=== PATIENT | male | born 1930 | race Caucasian/White ===

== ENCOUNTER 2019-03-28 13:16 | Inpatient (IN) | payer OTHER ==
[~2019-03-28] VITALS: Ht 167.6 cm; Wt 57.2 kg
[2019-03-28] MEDS ORDERED: SODIUM CHLORIDE 0.9% 1,000 ML IV ONE ×2 (16:09)
[2019-03-28] MEDS ORDERED: AZITHROMYCIN 500MG/ 250ML 250 ML IV ONE (16:15)
[2019-03-28] MEDS ORDERED: cefTRIAXone 1GM/50ML D5W 50 ML IV ONE (16:15)
[2019-03-28 16:52] LABS: Basophils # (auto) 0.1 uL; Eosinophils # (auto) 0.1 uL; Hematocrit 34.7 % (41.0-53.0); Lymphocytes # (auto) 0.6 uL; Mean Corpuscular Hemoglobin 24.5 pg (28.0-32.0); Neutrophils # (auto) 4.8 uL; White Blood Cell 6.2 10^3/uL (4.4-10.8)
[2019-03-28 16:54] LABS: Eosinophils % (auto) 1.5 % (0.0-7.0); Mean Corpuscular Hgb Conc. 31.6 g/dL (32.0-36.0); Mean Corpuscular Volume 77.5 fL (80.0-100.0); Monocytes # (auto) 0.5 uL; Monocytes % (auto) 8.9 % (0.0-12.0); Neutrophils % (auto) 78.6 % (37.0-80.0); Platelet Count (auto) 410 10^3/uL (140-450); Red Blood Cells 4.48 10^6/uL (4.5-5.90); Red Cell Distribution Width 19.2 % (11.8-14.3)
[2019-03-28 17:00] LABS: INR 1.06 (0.9-1.15); Partial Thromboplastin Time 31.9 sec (23.64-32.05)
[2019-03-28 17:01] LABS: Albumin 2.8 g/dL (3.4-5.0); BUN/Creatinine Ratio 7.8; Calcium 8.6 mg/dL (8.5-10.1)
[2019-03-28 17:04] LABS: Lactic Acid w/Reflex 3.7 mmol/L (0.4-2.0)
[2019-03-28 17:06] LABS: Bilirubin, Total 0.4 mg/dL (0.2-1.0); Potassium 3.1 mmol/L (3.5-5.1); Total Protein 7.7 g/dL (6.4-8.2)
[2019-03-28] MEDS ORDERED: NITROGLYCERIN 0.4 MG SL TAB SL PRN (18:15)
[2019-03-28] MEDS ORDERED: VANCOMYCIN PER PHARMACY 0 MG IV SCH (18:15)
[2019-03-28] MEDS ORDERED: ACETYLCYSTEINE 10 %(100MG/ML) SOL 4ML NEB ONE (18:15)
[2019-03-28] MEDS ORDERED: MORPHINE SULF INJ 2 MG/ML SYRINGE 1ML IV PRN ×2 (18:15)
[2019-03-28] MEDS ORDERED: HYDROcodone-ACET 5/325MG TAB PO PRN (18:15)
[2019-03-28] MEDS ORDERED: ACETAMINOPHEN 500 MG TAB PO PRN (18:15)
[2019-03-28] MEDS ORDERED: hydrALAZINE HCL 20 MG/ML VL IV PRN (18:15)
[2019-03-28] MEDS: SOD CHL 0.9%/ KCL 20MEQ 1,000 ML IV SCH (20:25)
[2019-03-28] MEDS ORDERED: VANCOMYCIN 1GM/250ML 250 ML IV ONE (20:30)
[2019-03-28] MEDS: ALBUTEROL SULF 2.5 MG/0.5ML(0.5%) NEB SOLN NEB SCH (21:13)
[2019-03-28] MEDS: IPRATROPIUM BROM 0.5 MG/2.5ML INH SOL NEB SCH (21:13)
--- NOTE | 2019-03-28 21:40 | NUR ---
Telemetry admit from [facility] admitted to Telemetry unit. Patient oriented to John Neumann, primary RN, unit, room, bed, and unit policies regarding patient care and visiting hours. Patient now on continuous telemetry monitoring, tele box #58 and telemetry reading on arrival to unit is SA 82. Patient weighed by bedscale and encouraged to call if they need something. All questions and concerns addressed, patient verbalized understanding.
[2019-03-28 22:00] VITALS: BP 130/50
[2019-03-28] MEDS ORDERED: VANCOMYCIN 750mg/250ml 250 ML IV ONE (22:00)
--- NOTE | 2019-03-28 22:15 | NUR ---
Attempted to call Maddy () at [phone] for additional information about the patient including medication dosages but she did not answer. A voicemail was left with hospital call back number.
[2019-03-28] MEDS: ATORVASTATIN 20 MG TAB PO SCH (22:57)
[2019-03-28 23:56] VITALS: BP 101/47
[2019-03-29] MEDS: PIPERACILLIN-TAZOB 3.375GM 100 ML IV SCH ×2 (00:31→06:22)
[2019-03-29] MEDS: TEMAZEPAM 15 MG CAP PO PRN ×2 (01:52→21:04)
[2019-03-29] MEDS ORDERED: GABA300C10 PO (03:23)
--- NOTE | 2019-03-29 04:05 | NUR ---
Maddy () returned call. She confirmed the patient's home medications. Will update the med rec.
[2019-03-29] MEDS ORDERED: MIRT1TAB14 PO (04:12)
[2019-03-29] MEDS ORDERED: LEV50T PO (04:12)
[2019-03-29] MEDS ORDERED: TRAZ100T2 PO (04:12)
[2019-03-29] MEDS ORDERED: OMEP20TA PO (04:12)
[2019-03-29] MEDS ORDERED: DOCU100T15 PO (04:12)
[2019-03-29] MEDS ORDERED: TAMS1CAP25 PO (04:12)
[2019-03-29] MEDS ORDERED: ONDA-143 PO (04:12)
[2019-03-29 05:00] VITALS: BP 142/76
[2019-03-29 05:49] LABS: Basophils # (auto) 0.1 uL; Eosinophils # (auto) 0.4 uL; Monocytes # (auto) 0.5 uL; Neutrophils # (auto) 2.9 uL; White Blood Cell 4.6 10^3/uL (4.4-10.8)
[2019-03-29 05:52] LABS: Basophils % (auto) 2.1 % (0.0-2.0); Eosinophils % (auto) 8.2 % (0.0-7.0); Hematocrit 31.8 % (41.0-53.0); Hemoglobin 10.2 g/dL (13.5-17.5); Lymphocytes # (auto) 0.7 uL; Lymphocytes % (auto) 15.8 % (10.0-50.0); Mean Corpuscular Hgb Conc. 32.3 g/dL (32.0-36.0); Mean Corpuscular Volume 77.4 fL (80.0-100.0); Monocytes % (auto) 10.3 % (0.0-12.0); Neutrophils % (auto) 63.6 % (37.0-80.0); Nucleated Red Blood Cells % 0.1 %; Platelet Count (auto) 340 10^3/uL (140-450); Red Cell Distribution Width 19.7 % (11.8-14.3)
[2019-03-29 06:06] LABS: INR 1.1 (0.9-1.15); Partial Thromboplastin Time 32.8 sec (23.64-32.05)
[2019-03-29 06:12] LABS: Potassium 3.1 mmol/L (3.5-5.1)
[2019-03-29] MEDS: IPRATROPIUM BROM 0.5 MG/2.5ML INH SOL NEB SCH ×5 (06:23→22:46)
[2019-03-29] MEDS: ALBUTEROL SULF 2.5 MG/0.5ML(0.5%) NEB SOLN NEB SCH ×5 (06:23→22:46)
--- NOTE | 2019-03-29 07:30 | NUR ---
Opening Shift Note RECEIVED REPORT FROM NOC RN. Assumed care of patient, awake and alert. No S/S of distress/SOB or pain. BED IN LOWEST, LOCKED POSITION WITH SIDERAILS UP x2 AND CALL LIGHT WITHIN REACH. Instructed on POC and to call for assist PRN, will continue to monitor for changes Q1hr and PRN.
[2019-03-29 08:10] VITALS: BP 149/78
[2019-03-29] MEDS: SOD CHL 0.9%/ KCL 20MEQ 1,000 ML IV SCH ×2 (08:46→21:10)
[2019-03-29] MEDS ORDERED: EZ PAQUE SUSP 12OZ BTL ONE (08:57)
[2019-03-29] MEDS ORDERED: BARIUM SULFATE 98% 340 GM PWDR ONE (08:57)
[2019-03-29] MEDS ORDERED: EZ-GAS II GRANULES (RADIOLOGY USE) PO ONE (08:58)
[2019-03-29 09:00] VITALS: BP 149/78
[2019-03-29] MEDS ORDERED: GASTROGRAFIN 120 ML SOL ONE (10:16)
[2019-03-29] MEDS: FAMOTIDINE 20 MG TAB PO SCH (10:18)
[2019-03-29] MEDS: ASPirin-EC 81 mg tab PO SCH (10:18)
[2019-03-29] MEDS: LISINOPRIL 10 MG TAB PO SCH (10:19)
[2019-03-29] MEDS ORDERED: LEVOFLOXACIN 250MG 50 ML IV ONE (11:30)
[2019-03-29] MEDS ORDERED: POTASSIUM CHL 20 Meq TABLET PO ONE (11:30)
[2019-03-29] MEDS ORDERED: POTASSIUM CHL 20MEQ/100ML 100 ML IV ONE (11:30)
--- NOTE | 2019-03-29 11:34 | NUR ---
DR. Trent EDWARDS AT BEDSIDE.
--- NOTE | 2019-03-29 13:19 | NUR ---
DR. BREWSTER AT BEDSIDE.
[2019-03-29] MEDS ORDERED: VANCOMYCIN 750mg/250ml 250 ML IV SCH (14:00)
--- NOTE | 2019-03-29 16:00 | NUR ---
Respiratory note: CLEANED TRACH, PATIENT HAS A SPARE AT HOME. LEFT SAME TRACH TIES PER PATIENT REQUEST. NO DRAINING OR REDNESS NOTED.
[2019-03-29 17:00] VITALS: BP 131/84
--- NOTE | 2019-03-29 19:00 | NUR ---
OPENING NOTE Received report from day shift RN. Patient is A&O X's 4 with no s/s of distress. Patient reports no SOB or pain. Patient's family is at bedside and was also updated on POC and all questions were answered at this time. Educated patient on POC and to use call light when in need of assistance. Patient verbalized understanding. Bed is in lowest/locked position with side rails up X's 2 and call light is within reach of patient. Will round hourly and continue care.
[2019-03-29] MEDS: ATORVASTATIN 20 MG TAB PO SCH (21:05)
[2019-03-29 22:00] VITALS: BP 122/70
--- NOTE | 2019-03-29 22:50 | NUR ---
Respiratory note: PT REFUSED MEDICATION, AFTER 1 MIN ON MED NEB TX TREATMENT. PT PRESENTING NO RESPIRATORY DISTRESS. HR 70, SPO2% 93%, RR 17, BS COARSE/DIMINISHED. WILL CONTINUE TO MONITOR.
[2019-03-30 05:00] VITALS: BP 125/75
[2019-03-30] MEDS: IPRATROPIUM BROM 0.5 MG/2.5ML INH SOL NEB SCH ×4 (07:04→19:01)
[2019-03-30] MEDS: ALBUTEROL SULF 2.5 MG/0.5ML(0.5%) NEB SOLN NEB SCH ×4 (07:04→19:01)
[2019-03-30 08:10] VITALS: BP 145/83
[2019-03-30 09:00] VITALS: BP 145/83
[2019-03-30] MEDS ORDERED: LEVOFLOXACIN 500 MG TAB PO SCH (10:00)
[2019-03-30] MEDS: FAMOTIDINE 20 MG TAB PO SCH (10:04)
[2019-03-30] MEDS: ASPirin-EC 81 mg tab PO SCH (10:05)
[2019-03-30] MEDS: LISINOPRIL 10 MG TAB PO SCH (10:05)
[2019-03-30] MEDS: SOD CHL 0.9%/ KCL 20MEQ 1,000 ML IV SCH (11:01)
[2019-03-30] MEDS ORDERED: ASPI-264 PO (11:53)
[2019-03-30 11:58] LABS: Hemoglobin 11.5 g/dL (13.5-17.5)
[2019-03-30 12:00] LABS: Basophils # (auto) 0 uL; Basophils % (auto) 0.8 % (0.0-2.0); Eosinophils # (auto) 0.4 uL; Eosinophils % (auto) 7.6 % (0.0-7.0); Lymphocytes # (auto) 0.8 uL; Lymphocytes % (auto) 14.3 % (10.0-50.0); Mean Corpuscular Hemoglobin 24.6 pg (28.0-32.0); Mean Corpuscular Hgb Conc. 31.8 g/dL (32.0-36.0); Mean Corpuscular Volume 77.2 fL (80.0-100.0); Monocytes # (auto) 0.6 uL; Monocytes % (auto) 9.7 % (0.0-12.0); Neutrophils % (auto) 67.6 % (37.0-80.0); Platelet Count (auto) 380 10^3/uL (140-450); Red Blood Cells 4.66 10^6/uL (4.5-5.90); Red Cell Distribution Width 19.5 % (11.8-14.3); White Blood Cell 5.9 10^3/uL (4.4-10.8)
[2019-03-30] MEDS ORDERED: ASPirin 81 mg TAB PO ONE ×2 (12:00)
[2019-03-30 12:05] VITALS: BP_SYST 115; BP_SYST 116; BP_SYST 138; BP_DIAS 73; BP_DIAS 74; BP_DIAS 89
[2019-03-30 12:30] LABS: BUN/Creatinine Ratio 6.7; Potassium 4.6 mmol/L (3.5-5.1)
--- NOTE | 2019-03-30 14:13 | NUR ---
Discharge planning per consult, patient has orders to dc with a home health safety evaluation. Referral faxed to [facility], placed a follow up call, spoke with Flory and was advised that they will accept this patient onto services. Obtained auth from [facility] for the home health-[id number]. Auth number was provided to Yaron. Addendum: 03/30/19 at 1422 by NIDIA HARKINS Amended: Links added.
--- NOTE | 2019-03-30 14:25 | NUR ---
Respiratory note: SCHEDULED MEDNEB TX NOT GIVEN, PT SAYS HE IS WAITING TO GET DISCHARGED AND DOES NOT WANT A BREATHING TX AT THIS TIME. NO S/S OF RESPIRATORY DISTRESS NOTED. ADVISED PT TO CALL FOR RT IF HE CHANGES HIS MIND. PT'S FAMILY AT BEDSIDE AWARE TO CALL TOO.
--- NOTE | 2019-03-30 14:32 | NUR ---
SPOKE WITH DR. BREWSTER. HE HAS CLEARED THE PATIENT FROM A CARDIOLOGY POINT OF VIEW. HE RECOMMENDS THE PATIENT CONTINUE AN ASPIRIN REGIMEN OF 325 MG PER DAY.
--- NOTE | 2019-03-30 14:43 | NUR ---
assessment Patient is a 88 year old male who is alert and oriented. Patient has a trach. Patients cognitive abilities are intact. Prior to admission patient lived home with family and functioned with assistance. Per patient he will return home to his prior living arrangements post discharge and his Miya his will transport him home. Patient informed me he has a cane and wheelchair for home use. I informed patient he has a consult for home health. Patient agreed to home health. Patient informed me his PCP is at the [facility] [address] [facility]. Patient informed me he feels safe returning home on discharge. I informed patient he has a right to speak to a social worker palliative care regarding all care. I informed patient he has a right to participate in any and all discharge planning. Patient has a POA and advanced directive. Patient verbalized understanding and agreed to discharge plan Addendum: 03/30/19 at 1449 by Brie SHEARER Amended: Links added.
--- NOTE | 2019-03-30 15:00 | NUR ---
Respiratory note: Pt ambulated with JOSSELINE Navarro around nurse's station, monitored with POX as ordered per Dr. Cruz. Pt tolerated well with HR 82-86, SPO2 92-97%, pt denies any SOB. Pt returned back to bed, no s/s of respiratory distress, went without incident.
[2019-03-30 17:00] VITALS: BP 134/76
--- NOTE | 2019-03-30 17:05 | NUR ---
PAGED DR. Trent EDWARDS THROUGH HIS EXCHANGE. AWAITING CALL BACK.
[2019-03-30 18:06] VITALS: BP 134/76
--- NOTE | 2019-03-30 18:44 | NUR ---
DR. Trent EDWARDS RETURNED PAGE.
--- NOTE | 2019-03-30 19:50 | NUR ---
PATIENT DISCHARGED Patient is A&O X's 4 with no s/s of distress. He reports that he feels well enough to go home and has no complaints. Family is at bedside. All discharge paperwork given to patient along with the imaging disc. All questions were answered. 20G IV to right forearm was removed and gauze applied to site. No trauma noted and catheter was fully intact. Tele box removed and sent to tele room. Patient was transferred down to his car in wheelchair safely. Patient left with all belongings.
[2019-03-31] MEDS ORDERED: ASPirin 325 MG TAB PO SCH (10:00)
== END 2019-03-30 19:50 | disposition home health service (06) | DRG 280 ==
LOC: ER 13:16 → EDBD 13:16 → TELE 13:17 → TELE-WESTW 21:39
PROVIDERS: ADMIT Nurse Practitioner Acute Care; ATTEND Internal Medicine
DX: I21.4 Non-ST elevation (NSTEMI) myocardial infarction (principal); J18.9 Pneumonia, unspecified organism; R64 Cachexia; E44.0 Moderate protein-calorie malnutrition; J44.0 Chronic obstructive pulmonary disease with (acute) lower respiratory infection; K21.9 Gastro-esophageal reflux disease without esophagitis; I48.0 Paroxysmal atrial fibrillation; E87.6 Hypokalemia; E03.9 Hypothyroidism, unspecified; F17.200 Nicotine dependence, unspecified, uncomplicated; I11.9 Hypertensive heart disease without heart failure; G62.9 Polyneuropathy, unspecified; R07.89 Other chest pain; R55 Syncope and collapse; R00.1 Bradycardia, unspecified; Z83.3 Family history of diabetes mellitus; Z85.118 Personal history of other malignant neoplasm of bronchus and lung; Z85.21 Personal history of malignant neoplasm of larynx; Z85.819 Personal history of malignant neoplasm of unspecified site of lip, oral cavity, and pharynx; Z87.01 Personal history of pneumonia (recurrent); Z92.3 Personal history of irradiation; Z93.0 Tracheostomy status; Z68.20 Body mass index [BMI] 20.0-20.9, adult
CPT/HCPCS: 36415; 70450; 71045; 71250; 74220; 80048; 80053; 80202; 83605; 83880; 84443; 84484; 85025; 85610; 85730; 86141; 87040; 87081; 93005; 93306; 94640; 96361; 96365; 96367; G0378; J0696; J2543; J3480